=== PATIENT | male | born 1960 | race Caucasian/White ===

== ENCOUNTER 2024-01-22 15:22 | Emergency (ER) | payer BC, SELFPAY ==
[2024-01-22] VITALS (21 sets, daily range): BP systolic 124–142; BP diastolic 84–101; PULSE 63–80; RESP 16–18; TEMP 36.8; O2SAT 90–100; BMI 31.9
[2024-01-22] MEDS: MORPHINE 4 MG/ML INJ IVP (15:36)
--- NOTE | 2024-01-22 15:36 | CRLHL7_ITS ---
For Patients: As a result of the Century Cures Act, medical imaging exams and procedure reports are released immediately into your electronic medical record. You may view this report before your referring provider. If you have questions, please contact your health care provider. Indication: FALL FROM LADDER LEFT FLANK PAIN Technique: CT chest/abdomen/pelvis with IV contrast, 103 mL Isovue 370 Comparison: None Findings: Chest: No thyroid nodules. No thoracic. Mild cardiomegaly. No pericardial effusion. The thoracic aorta is normal caliber no dissection. The pulmonary artery is within normal limits in caliber. No focal airspace consolidation, pleural effusion, or pneumothorax. No suspicious pulmonary nodules or masses. The airways are clear. Abdomen/pelvis: The liver, gallbladder and biliary system, spleen, pancreas, adrenal glands, kidneys, ureters, and bladder are without CT evidence of acute traumatic injury. Diffuse hepatic steatosis. Well-circumscribed low-density splenic lesion, likely a benign cyst. Stable appearing parapelvic cyst at the lower pole of the left kidney. The seminal vesicles, prostate, and visualized external genitalia are unremarkable in appearance. There is no evidence of bowel obstruction, inflammation, or acute traumatic injury. The appendix is normal. Colonic diverticulosis without CT evidence of acute diverticulitis. No free fluid or free air. No abscess. No abdominopelvic lymphadenopathy. The vasculature is unremarkable in appearance. Soft tissue/musculoskeletal: Focal left lateral abdominal wall contusion (series number 2, image [id number]). Acute, nondisplaced left lateral 10th rib fracture. Age-indeterminate left lateral 11th rib fracture. Degenerative changes of the bilateral shoulders and throughout the spine, most pronounced at the lumbar spine. Postsurgical changes of right total hip arthroplasty without evidence of hardware related complication. Impression: 1. Focal left lateral abdominal wall contusion (series number 2, image [id number]). 2. Acute, nondisplaced left lateral 10th rib fracture and age-indeterminate left lateral 11th rib fracture. 3. Additional incidental findings as detailed above. Please note that all CT scans at this facility use dose modulation, iterative reconstruction, and/or weight-based dosing when appropriate to reduce radiation dose to as low as reasonably achievable. Dictated by Sidney Harris MD @ 01/22/2024 4:33:15 PM (Electronically Signed)
[2024-01-22 15:50] LABS: Basophils Absolute Auto 0.03 K/uL (0.00-0.30); Basophils Percent Auto 0.4 % (0.0-3.0); Eosinophils Absolute Auto 0.08 K/uL (0.00-0.50); Eosinophils Percent Auto 0.9 % (0.0-7.0); Hematocrit 40.3 % (37.0-53.0); Hemoglobin* 14.2 gm/dL (13.5-17.5); Immature Granulocytes Abs Auto 0.04 K/uL (0.00-0.30); Immature Granulocytes Pct Auto 0.5 %; Lymphocytes Percent Auto 15.8 % (20-44); Mean Corpuscular HGB Conc 35 gm/dL (32-36); Mean Corpuscular Hemoglobin 31 pg (26-34); Mean Corpuscular Volume 88 fL (80-100); Monocytes Percent Auto 8.4 % (0.0-11.0); Platelet Count* 288 K/uL (140-440); RDW Coefficient of Variation % 11.7 % (11.5-15.5); Red Blood Count 4.58 m/uL (4.30-5.90); White Blood Count* 8.44 K/uL (4.50-11.00)
[2024-01-22 15:54] LABS: Creatinine, Point-of-Care* 1.1 mg/dl (0.6-1.3)
[2024-01-22 15:57] LABS: Slide Review Reflex No
--- NOTE | 2024-01-22 16:01 | ED.GENADULT ---
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 He stepped back but missed the ladder and fell landing on his left side. He says he was wearing a tool belt was some tools that then dug into that side. His primary complaint is of pain in his left lower ribcage, he feels that he may have broken some ribs. He does not have any trouble breathing. He denies hitting his head, does not have any neck pain. He has some pain in his left elbow as well. He does not have midline back pain. Denies abdominal pain or lower extremity pain. Denies any significant medical history, says he takes no medications. He has had hallucinations with Percocet in the past but says he has taken plain oxycodone without problems. He does not smoke or drink. Related Data Previous Rx's ?Medication ?Instructions ?Recorded amoxicillin 500 mg capsule 2,000 mg (4 x 500 mg) PO ONCE #4 07/19/22 caps Allergies Allergy/AdvReac Type Severity Reaction Status Date / Time oxycodone Allergy Verified 01/22/24 16:04 Review of Systems Status of ROS: Reports: 10 or more systems reviewed and unremarkable except as noted in History and below [facility] Medical History Diabetes ?E11.9 - Type 2 diabetes mellitus without complications (ICD-10) Surgical History H/O total hip arthroplasty ?Z96.649 - Presence of unspecified artificial hip joint (ICD-10) Exam Narrative: Exam Narrative: Primary survey: Airway: Patent. Breathing: Nonlabored. Lungs clear. Circulation: Pulses intact. No external bleeding. Disability: GCS 15. Secondary survey: Vital signs reviewed In general, an alert, nontoxic mid-age male. Head: Normocephalic, atraumatic. Eyes: Pupils are equal reactive. Extraocular movements full. ENT: No facial trauma. Dentition intact. Neck: No midline cervical tenderness. No anterior neck trauma. Chest: He has a faint red dione in the left lateral lower chin last/upper abdomen with a small associated abrasion. Tenderness in this area. No crepitus or subcu air. Heart regular rate and rhythm. Lungs clear bilaterally. Abdomen: No visible signs of trauma. Soft, nondistended, nontender to palpation. Back: No visible signs of trauma. Nontender to palpation. Pelvis: Stable, nontender. Extremities: He has an abrasion on the left forearm with a little bit of surrounding soft tissue swelling but no bony deformity. He has a small abrasion over the olecranon, some bony tenderness there, full range of motion. Extremities otherwise atraumatic. Neurologic: Alert, conversant, moves all extremities to command. Skin: Warm and dry, otherwise intact. Const: Vital Signs, click to edit/add: Vital Signs - 24 hr 01/22/24 15:30 01/22/24 15:35 01/22/24 15:43 Temperature 98.2 F Pulse Rate 75 Pulse Rate [Pulse Oximeter] 80 Respiratory Rate 18 16 Blood Pressure 125/93 H Blood Pressure [Ri ght Upper Arm] 133/101 H Pulse Oximetry 98 98 94 Oxygen Delivery Me thod Room Air 01/22/24 15:44 01/22/24 15:45 01/22/24 16:01 Temperature Pulse Rate 77 75 70 Pulse Rate [Pulse Oximeter] Respiratory Rate 16 Blood Pressure 140/98 H Blood Pressure [Ri ght Upper Arm] Pulse Oximetry 98 96 100 Oxygen Delivery Me thod 01/22/24 16:11 01/22/24 16:21 01/22/24 16:22 Temperature Pulse Rate 69 67 67 Pulse Rate [Pulse Oximeter] Respiratory Rate 16 16 Blood Pressure 142/89 H 132/91 H Blood Pressure [Ri ght Upper Arm] Pulse Oximetry 95 92 93 Oxygen Delivery Me thod 01/22/24 16:30 01/22/24 16:31 01/22/24 16:51 Temperature Pulse Rate 66 67 67 Pulse Rate [Pulse Oximeter] Respiratory Rate 16 Blood Pressure 131/87 129/91 H Blood Pressure [Ri ght Upper Arm] Pulse Oximetry 92 95 92 Oxygen Delivery Me thod 01/22/24 17:01 01/22/24 17:11 01/22/24 17:21 Temperature Pulse Rate 65 67 65 Pulse Rate [Pulse Oximeter] Respiratory Rate 16 16 16 Blood Pressure 129/88 133/94 H 127/84 Blood Pressure [Ri ght Upper Arm] Pulse Oximetry 92 94 91 Oxygen Delivery Va thod Documenting provider has reviewed patient's vital signs: yes Course Course ED Course: Following initial evaluation, I did do a brief fast exam, no visible free fluid in the splenorenal, Morison's pouch or pelvic views. No obvious pericardial effusion. Sliding lung sign seen bilaterally. An IV was established, he was given 4 mg of morphine for pain and a CT of the chest abdomen pelvis was ordered. Will also obtain x-rays of the left elbow. CT of the chest abdomen pelvis read by radiology as below. X-ray of the left elbow by my review did not show any obvious fracture and no significant joint effusion. The wound on his left forearm was cleaned, it is fairly superficial but there is 1 small area where it is a little deeper and I elected to close that with glue. He tolerated this well without immediate complication. Total length of that wound is about 1 cm. He believes his tetanus is up-to-date, we will confirm that. Labs are unremarkable, white blood cell count is normal, hemoglobin is 14, metabolic panel is normal. UA is pending but no evidence of renal injury on CT. He does have a 10th rib fracture possibly an 11th rib fracture. This is reviewed with him. No injury to the spleen or lung. He had Dilaudid in addition to the morphine for pain control. He would like to use oxycodone at home, despite the listed allergy. Final radiology read of the left elbow is likewise negative. Tetanus up-to-date as of 2020. Patient discharged home, oxycodone 10 tablets prescribed from [facility]. Return for severe uncontrolled pain, new symptoms such as fever, difficulty breathing, cough. Follow-up with primary doctor further concerns. Vital Signs Vital signs: Initial Vital Signs Temperature 98.2 F 01/22/24 15:30 Temperature Source Temporal Artery Scan 01/22/24 15:30 Pulse Rate 80 01/22/24 15:30 Respiratory Rate 18 01/22/24 15:30 Blood Pressure 133/101 H 01/22/24 15:30 Blood Pressure Mean 111 H 01/22/24 15:30 Pulse Oximetry 98 01/22/24 15:30 Oxygen Delivery Method Room Air 01/22/24 15:30 Vital Signs Temperature 98.2 F 01/22/24 15:30 Pulse Rate 80 01/22/24 15:30 Respiratory Rate 18 01/22/24 15:30 Blood Pressure 133/101 H 01/22/24 15:30 Pulse Oximetry 98 01/22/24 15:30 Oxygen Delivery Method Room Air 01/22/24 15:30 Temperature 98.2 F 01/22/24 15:30 Pulse Rate 65 01/22/24 17:21 Respiratory Rate 16 01/22/24 17:21 Blood Pressure 127/84 01/22/24 17:21 Pulse Oximetry 91 01/22/24 17:21 Oxygen Delivery Method Room Air 01/22/24 15:30 Medications Administered Medications: Discontinued Medications Generic Name Dose Route Start Last Admin Trade Name Freq PRN Reason Stop Dose Admin Hydromorphone HCl 0.5 mg 01/22/24 16:15 01/22/24 16:20 Hydromorphone 0.5 Mg/0.5 Ml Inj IVP 01/22/24 16:16 0.5 mg ONCE ONE Administration Morphine Sulfate 4 mg 01/22/24 15:34 01/22/24 15:36 Morphine 4 Mg/Ml Inj IVP 01/22/24 15:35 4 mg ONCE ONE Administration Medical Decision Making Lab Data Labs: Lab Results 01/22/24 01/22/24 Range/Units 15:38 15:40 WBC 8.44 (4.50-11.00) K/uL RBC 4.58 (4.30-5.90) m/uL Hgb 14.2 (13.5-17.5) gm/dL Hct 40.3 (37.0-53.0) % MCV 88 (80-100) fL MCH 31 (26-34) pg MCHC 35 (32-36) gm/dL RDW Coeff of Martinez 11.7 (11.5-15.5) % Plt Count 288 (140-440) K/uL Neut % (Auto) 74.0 H (42.0-72.0) % Lymph % (Auto) 15.8 L (20-44) % Lander % (Auto) 8.4 (0.0-11.0) % Eos % (Auto) 0.9 (0.0-7.0) % Baso % (Auto) 0.4 (0.0-3.0) % Neut # (Auto) 6.20 (1.7-7.0) K/uL Lymph # (Auto) 1.30 (0.90-2.90) K/uL Lander # (Auto) 0.70 (0.00-0.90) K/UL Eos # (Auto) 0.08 (0.00-0.50) K/uL Baso # (Auto) 0.03 (0.00-0.30) K/uL Abs Immat Gran (auto) 0.04 (0.00-0.30) K/uL Imm/Tot Granulo (auto) 0.5 % Sodium 138 (135-149) mmol/L Potassium 3.8 (3.6-5.1) mmol/L Chloride 105 (96-114) mmol/L Carbon Dioxide 20 (20-32) mmol/L Anion Gap 13 (7-15) mEq/L BUN 19 (7-30) mg/dL Creatinine 1.1 (0.5-1.5) mg/dL Estimated Creat Clear 65.64 Estimated GFR 75 ml/min Glucose 133 H (60-115) mg/dL Calcium 10.1 (8.4-10.6) mg/dL POC Creatinine 1.1 (0.6-1.3) mg/dl Imaging Data CT Chest/Ab/Pelvis: Radiologist's impression: Patient: Khanh Alonso MR#: [id number] : 1960 Acct:[id number] Loc: ED Service Date: 01/22/[address]: Ordering Physician: Marla Villanueva M.D. Date of Service: 01/22/24 Procedure(s): CT chest abdomen pelv w con Accession Number(s): [id number] cc: Marla Villanueva M.D.; Bing Newton M.D.~ For Patients: As a result of the Cures Act, medical imaging exams and procedure reports are released immediately into your electronic medical record. You may view this report before your referring provider. If you have questions, please contact your health care provider. Indication: FALL FROM LADDER LEFT FLANK PAIN Technique: CT chest/abdomen/pelvis with IV contrast, 103 mL Isovue 370 Comparison: None Findings: Chest: No thyroid nodules. No thoracic. Mild cardiomegaly. No pericardial effusion. The thoracic aorta is normal caliber no dissection. The pulmonary artery is within normal limits in caliber. No focal airspace consolidation, pleural effusion, or pneumothorax. No suspicious pulmonary nodules or masses. The airways are clear. Abdomen/pelvis: The liver, gallbladder and biliary system, spleen, pancreas, adrenal glands, kidneys, ureters, and bladder are without CT evidence of acute traumatic injury. Diffuse hepatic steatosis. Well-circumscribed low-density splenic lesion, likely a benign cyst. Stable appearing parapelvic cyst at the lower pole of the left kidney. The seminal vesicles, prostate, and visualized external genitalia are unremarkable in appearance. There is no evidence of bowel obstruction, inflammation, or acute traumatic injury. The appendix is normal. Colonic diverticulosis without CT evidence of acute diverticulitis. No free fluid or free air. No abscess. No abdominopelvic lymphadenopathy. The vasculature is unremarkable in appearance. Soft tissue/musculoskeletal: Focal left lateral abdominal wall contusion (series number 2, image [id number]). Acute, nondisplaced left lateral 10th rib fracture. Age-indeterminate left lateral 11th rib fracture. Degenerative changes of the bilateral shoulders and throughout the spine, most pronounced at the lumbar spine. Postsurgical changes of right total hip arthroplasty without evidence of hardware related complication. Impression: 1. Focal left lateral abdominal wall contusion (series number 2, image [id number]). 2. Acute, nondisplaced left lateral 10th rib fracture and age-indeterminate left lateral 11th rib fracture. 3. Additional incidental findings as detailed above. Please note that all CT scans at this facility use dose modulation, iterative reconstruction, and/or weight-based dosing when appropriate to reduce radiation dose to as low as reasonably achievable. Dictated by Sidney Harris MD @ 01/22/2024 4:33:15 PM x ray: Radiologist's impression: Patient: KHANH ALONSO Facility: [facility] Site . Site : 1960 Study: XRay-Extremity Left elbow 3V-01/22/2024 4:54:13 PM Ordering Physician: Rich Gutiérrez Final Report: Indication: Trauma Technique: Three views of the left elbow Comparison: None Findings/Impression: No acute fracture or malalignment. No elbow effusion. No suspicious osseous lesions. Tiny olecranon enthesophyte. Mild soft tissue swelling at the level of the olecranon. Dictated by Sidney Harris MD @ 01/22/2024 5:45:16 PM Discharge Plan Discharge Clinical Impression: Left rib fracture, Injury of left forearm Patient Disposition: Home, Self-Care Condition: Improved Instructions: Laceration (DC), Rib Fracture (ED), Skin Adhesive Care (ED) Additional Instructions: Your CT scan shows a fracture of your 10th rib, and possibly or 11th rib on the left side. Your internal organs otherwise look good. You can expect to have pain from the rib fractures for 4-6 weeks, it should gradually improve but you will probably have more significant pain for the 1st couple of weeks. You can use Tylenol, 1000 mg 3 times daily and oxycodone as needed for uncontrolled pain. Ice is also very helpful for rib fractures. If at any time you have severe uncontrolled pain, new symptoms such as fever, cough, difficulty breathing, return for re-evaluation. You should also return if you develop signs of infection on your arm such as increasing redness, swelling or pain. The glue will slough off over the next couple of weeks. He Prescriptions: No Action amoxicillin 500 mg capsule 2,000 mg PO ONCE Qty: 4 3RF Rx Instructions: Take 4 capsules (2000mg) 1 hour prior to dental appointment. Follow Up/Referrals: Bing Newton MD [Primary Care Provider] - Stand Alone Forms: [facility] Info Instructions
--- NOTE | 2024-01-22 16:17 | CRLHL7_ITS ---
For Patients: As a result of the Cures Act, medical imaging exams and procedure reports are released immediately into your electronic medical record. You may view this report before your referring provider. If you have questions, please contact your health care provider. Indication: Trauma Technique: Three views of the left elbow Comparison: None Findings/Impression: No acute fracture or malalignment. No elbow effusion. No suspicious osseous lesions. Tiny olecranon enthesophyte. Mild soft tissue swelling at the level of the olecranon. Dictated by Sidney Harris MD @ 01/22/2024 5:45:16 PM (Electronically Signed)
[2024-01-22] MEDS: HYDROmorphone 0.5 mg/0.5 ml inj IVP (16:20)
[2024-01-22 16:30] LABS: Chloride* 105 mmol/L (96-114); Potassium* 3.8 mmol/L (3.6-5.1); Sodium* 138 mmol/L (135-149)
[2024-01-22 16:33] LABS: Anion Gap 13 mEq/L (7-15); Blood Urea Nitrogen* 19 mg/dL (7-30); Carbon Dioxide* 20 mmol/L (20-32); Creatinine* 1.1 mg/dL (0.5-1.5); Est. Creatinine Clearance* 65.64; Estimated Glomerular Filt Rate 75 ml/min; Glucose* 133 mg/dL (60-115)
[2024-01-22 16:34] LABS: Calcium* 10.1 mg/dL (8.4-10.6)
== END 2024-01-22 18:13 | disposition home or self-care (01) ==
PROVIDERS: Emergency Provider Emergency Medicine; PCP Family Medicine
DX: S22.32XA Fracture of one rib, left side, initial encounter for closed fracture (principal); W11.XXXA Fall on and from ladder, initial encounter; M25.522 Pain in left elbow
CPT/HCPCS: 36415; 71260; 73080; 74177; 80048; 81001; 82565; 85025; 94761; 96374; 96375; 99284; 99291; J1171; J2270; Q9967